=== PATIENT | female | born 1985 | race Caucasian/White ===

== ENCOUNTER 2019-06-20 15:36 | Emergency (ER) | payer MEDICAID ==
[~2019-06-20] VITALS: Ht 160 cm; Wt 65.0 kg
[2019-06-20 21:00] VITALS: BP 136/89
[2019-06-20] MEDS ORDERED: IBUPROFEN 600MG TABLET PO STA (21:00)
== END 2019-06-20 22:56 | disposition home or self-care (01) ==
LOC: ER 15:36
DX: R07.89 Other chest pain (principal); R05 Cough; Z90.49 Acquired absence of other specified parts of digestive tract; Z98.890 Other specified postprocedural states
CPT/HCPCS: 71045; 93005; 99283